=== PATIENT | female | born 1965 | race Caucasian/White ===

== ENCOUNTER 2017-02-10 14:42 | Inpatient (IN) | payer OTHER ==
[~2017-02-10] VITALS: Ht 160 cm; Wt 76.6 kg
[2017-02-10] MEDS ORDERED: LYRICA200 MG PO ×2 (14:58)
[2017-02-10] MEDS ORDERED: REQUIP1 MG PO (14:58)
[2017-02-10] MEDS ORDERED: ZOLOFT100 MG PO (14:58)
[2017-02-10] MEDS ORDERED: LORTAB 10-3251 EACH PO (14:59)
[2017-02-10] MEDS ORDERED: FLEXERIL10 MG PO (14:59)
[2017-02-10] MEDS ORDERED: ORAJEL (15:00)
[2017-02-10] MEDS ORDERED: MOTRIN800 MG PO (15:00)
[2017-02-10 15:42] LABS: EOSINOPHIL (%) 1.6 % (0-5); EOSINOPHIL COUNT 0.1 K/uL (0-0.3); HEMATOCRIT 39.3 % (36.0-46.0); IMMATURE GRANULOCYTE (%) 0.1 % (0.0-0.7); LYMPHOCYTE COUNT 2.1 K/uL (1.0-2.8); MCH 30.8 PG (29.0-34.0); MCHC 33.1 G/DL (30.0-36.0); MCV 93.1 FL (83-99); MEAN PLAT.VOLUME 10.1 uM^3 (9.5-12.4); MONOCYTE COUNT 0.5 K/uL (0-0.8); NEUTROPHIL (%) 60.1 % (45-76); PLATELET COUNT 239 K/uL (156-360); RBC DIS.WIDTH-CV 11.6 % (11.8-14.6); RBC DIS.WIDTH-SD 39.5 % (39-53); RED BLOOD COUNT 4.22 M/uL (3.80-5.20); WHITE BLOOD COUNT 6.7 K/uL (4.1-10.2)
[2017-02-10 15:49] LABS: CHLORIDE 109 mEq/L (99-109)
[2017-02-10 15:50] LABS: POTASSIUM 3.8 mEq/L (3.7-5.4); SODIUM 144 mEq/L (136-147)
[2017-02-10 15:52] LABS: GLUCOSE 82 mg/dL (70-99)
[2017-02-10 15:53] LABS: ANION GAP 9 MEQ/L (2-14)
[2017-02-10 15:54] LABS: TOTAL BILIRUBIN 0.5 mg/dL (0.0-1.0)
[2017-02-10 15:55] LABS: ALKALINE PHOSPHATASE 80 IU/L (3-129); GFR ESTIMATE (CALCULATED) > 59 mL/min/
[2017-02-10 15:56] LABS: UREA NITROGEN (BUN) 15 mg/dL (9-23)
[2017-02-10] MEDS ORDERED: ANBESOL MM (19:27)
[2017-02-10] MEDS ORDERED: LIDOCAINE700 MG TD (19:28)
[2017-02-10] MEDS ORDERED: VITAMIN D31000 UNI2 PO (19:28)
[2017-02-10] MEDS ORDERED: MAGNESIUM OXID500 MG PO (19:29)
[2017-02-11] VITALS (7 sets, daily range): BP systolic 106–140; BP diastolic 55–77
[2017-02-11 08:50] LABS: HEMATOCRIT 37.5 % (36.0-46.0); MCH 30.6 PG (29.0-34.0); MCHC 33.3 G/DL (30.0-36.0); MCV 91.9 FL (83-99); MEAN PLAT.VOLUME 10.3 uM^3 (9.5-12.4); PLATELET COUNT 241 K/uL (156-360); RBC DIS.WIDTH-CV 11.4 % (11.8-14.6); RBC DIS.WIDTH-SD 38.6 % (39-53); RED BLOOD COUNT 4.08 M/uL (3.80-5.20); WHITE BLOOD COUNT 5.1 K/uL (4.1-10.2)
[2017-02-11 09:09] LABS: ANION GAP 9 MEQ/L (2-14); CHLORIDE 109 MEQ/L (99-109); POTASSIUM 3.9 MEQ/L (3.7-5.4); SAMPLE HEMOLYSIS CHECK 0; SAMPLE ICTERIC CHECK 0; SAMPLE LIPEMIA CHECK 0; SODIUM 143 MEQ/L (136-147)
[2017-02-11 09:14] LABS: GFR ESTIMATE (CALCULATED) > 59 mL/min/; UREA NITROGEN (BUN) 11 mg/dL (9-23)
[2017-02-11 09:19] LABS: GLUCOSE 164 mg/dL (70-99)
[2017-02-11] MEDS ORDERED: ZEBUTAL 50-3251 EACH PO (20:52)
[2017-02-12 03:49] VITALS: BP 104/56
[2017-02-12 06:21] LABS: EOSINOPHIL (%) 0 % (0-5); HEMATOCRIT 33.9 % (36.0-46.0); IMMATURE GRANULOCYTE (%) 0.5 % (0.0-0.7); IMMATURE GRANULOCYTE COUNT 0.1 K/uL; INSTRUMENT ABS NEUTROPHIL CT 7.2 K/uL; LYMPHOCYTE COUNT 1.6 K/uL (1.0-2.8); MCHC 33.6 G/DL (30.0-36.0); MCV 92.1 FL (83-99); MEAN PLAT.VOLUME 10.4 uM^3 (9.5-12.4); MONOCYTE (%) 4.1 % (3-12); MONOCYTE COUNT 0.4 K/uL (0-0.8); NEUTROPHIL COUNT 7.2 K/uL (1.8-6.4); PLATELET COUNT 219 K/uL (156-360); RBC DIS.WIDTH-CV 11.5 % (11.8-14.6); RBC DIS.WIDTH-SD 38.8 % (39-53); RED BLOOD COUNT 3.68 M/uL (3.80-5.20)
[2017-02-12 06:22] LABS: WHITE BLOOD COUNT 9.2 K/uL (4.1-10.2)
[2017-02-12 06:36] LABS: ANION GAP 9 MEQ/L (2-14); C-REACTIVE PROTEIN 16.3 MG/L (0-10); CHLORIDE 107 MEQ/L (99-109); GFR ESTIMATE (CALCULATED) > 59 mL/min/; GLUCOSE 123 mg/dL (70-99); POTASSIUM 3.9 MEQ/L (3.7-5.4); SAMPLE HEMOLYSIS CHECK 0; SAMPLE ICTERIC CHECK 0; SAMPLE LIPEMIA CHECK 0; SODIUM 142 MEQ/L (136-147); UREA NITROGEN (BUN) 13 mg/dL (9-23)
[2017-02-12 07:47] VITALS: BP 132/64
[2017-02-12 09:31] LABS: ERTH.SED.RATE 15 MM/HR (0-30)
[2017-02-12 12:24] VITALS: BP 107/61
[2017-02-12 16:00] VITALS: BP 121/63
[2017-02-12 18:43] VITALS: BP 128/73
[2017-02-12 23:15] VITALS: BP 120/67
[2017-02-13 02:59] VITALS: BP 108/53
[2017-02-13 07:00] VITALS: BP 124/66
[2017-02-13 07:15] LABS: HEMATOCRIT 33.3 % (36.0-46.0); MCH 31.4 PG (29.0-34.0); MCHC 33.3 G/DL (30.0-36.0); MCV 94.1 FL (83-99); MEAN PLAT.VOLUME 10.5 uM^3 (9.5-12.4); PLATELET COUNT 207 K/uL (156-360); RBC DIS.WIDTH-CV 11.8 % (11.8-14.6); RBC DIS.WIDTH-SD 40.3 % (39-53); RED BLOOD COUNT 3.54 M/uL (3.80-5.20)
[2017-02-13 07:35] LABS: ANION GAP 5 MEQ/L (2-14); CHLORIDE 108 MEQ/L (99-109); GFR ESTIMATE (CALCULATED) > 59 mL/min/; GLUCOSE 95 mg/dL (70-99); POTASSIUM 4.1 MEQ/L (3.7-5.4); SAMPLE HEMOLYSIS CHECK 0; SAMPLE ICTERIC CHECK 0; SAMPLE LIPEMIA CHECK 0; SODIUM 141 MEQ/L (136-147); UREA NITROGEN (BUN) 15 mg/dL (9-23)
[2017-02-13] MEDS ORDERED: NAPROXEN500 MG PO (08:34)
[2017-02-13] MEDS ORDERED: AUGMENTIN875 MG PO (08:34)
== END 2017-02-13 13:48 | disposition home or self-care (01) | DRG 603 ==
LOC: EME 14:42 → EDOF 02-11 00:04 → 2EAST 02-11 00:04
PROVIDERS: Hospitalist; Nurse Practitioner Family
DX: L03.211 Cellulitis of face (principal); K04.7 Periapical abscess without sinus; M54.2 Cervicalgia; F33.2 Major depressive disorder, recurrent severe without psychotic features; G89.4 Chronic pain syndrome; M79.7 Fibromyalgia; Z87.891 Personal history of nicotine dependence; Z88.2 Allergy status to sulfonamides; Z88.5 Allergy status to narcotic agent; Z98.1 Arthrodesis status
CPT/HCPCS: 70491; 80048; 80053; 83605; 85025; 85027; 85651; 86140; 87040; 99281; 99285; J0295; J1100; J1644; J1885; J2405; J3010; J7030; J7050